=== PATIENT | male | born 1990 | race African-American/Black ===

== ENCOUNTER 2019-06-18 15:20 | Emergency (ER) | payer MEDICAID ==
[~2019-06-18] VITALS: Ht 172.7 cm; Wt 85.0 kg
[2019-06-18 15:40] VITALS: BP 134/82
[2019-06-18] MEDS ORDERED: AZITHROMYCIN 500 MG TABLET PO SCH (17:45)
[2019-06-18] MEDS ORDERED: CEFTRIAXONE SODIUM 250 MG/VIAL IM ONE (17:45)
[2019-06-18 17:50] LABS: CLARITY URINE TURBID (CLEAR); COLOR URINE DARK YELLOW (YELLOW); KETONES URINE TRACE (NEGATIVE); LEUKOCYTE ESTERASE URINE 3+ (NEGATIVE); NITRITE URINE NEGATIVE (NEGATIVE); OCCULT BLOOD URINE 2+ (NEGATIVE); PH URINE 6.5 (4.5-8.0); PROTEIN URINE 2+ (NEGATIVE); SPECIFIC GRAVITY URINE 1.023 (1.005-1.030)
[2019-06-18] MEDS ORDERED: CEFTRIAXONE SODIUM 250 MG/VIAL ONE (18:03)
[2019-06-18] MEDS ORDERED: AZITHROMYCIN 500 MG TABLET ONE (18:04)
== END 2019-06-18 19:11 | disposition home or self-care (01) ==
LOC: ER 15:20
DX: R36.9 Urethral discharge, unspecified (principal); F17.200 Nicotine dependence, unspecified, uncomplicated
CPT/HCPCS: 81003; 86592; 86703; 87086; 99283; J0696

== ENCOUNTER 2020-02-05 12:22 | Emergency (ER) | payer MEDICAID ==
[~2020-02-05] VITALS: Ht 172.7 cm; Wt 75.0 kg
[2020-02-05] MEDS ORDERED: PENICILLIN G BENZATHINE 2,400,000 UNITS/4ML SYR IM ONE (14:00)
[2020-02-05] MEDS ORDERED: CEFTRIAXONE SODIUM 250 MG/VIAL IM ONE (14:00)
[2020-02-05] MEDS ORDERED: LIDOCAINE HCL 1% 20ML VIAL (Pyxis) INJ INFIL ONE (14:00)
[2020-02-05] MEDS ORDERED: AZITHROMYCIN 500 MG TABLET PO ONE (14:00)
[2020-02-05 15:20] VITALS: BP 142/75
[2020-02-08 04:07] LABS: NEISSERIA GONORRHOEAE NAA Negative (Negative)
== END 2020-02-05 15:29 | disposition home or self-care (01) ==
LOC: ER 12:22
DX: N34.2 Other urethritis (principal)
CPT/HCPCS: 86592; 87491; 87591; 96372; 99284; J0561; J0696; J3490

== ENCOUNTER 2021-08-04 14:12 | Emergency (ER) | payer SELFPAY ==
[~2021-08-04] VITALS: Ht 182.9 cm; Wt 84.0 kg
[2021-08-04] MEDS ORDERED: ONDANSETRON 4MG ODT PO STA (14:22)
[2021-08-04 15:19] LABS: CHLORIDE 107 mEq/L (98-107)
[2021-08-04 15:24] LABS: BASOPHILS % 0.5 % (0.0-2.0); EOSINOPHILS % 0.7 % (0.0-5.0); ETHANOL BLOOD < 10 mg/dL; HEMATOCRIT. 40.3 % (42.0-52.0); HEMOGLOBIN. 13.6 g/dL (14.0-18.0); LYMPHOCYTES % 15.4 % (20.0-50.0); MEAN CORPUSCULAR HEMOGLOBIN 28.2 pg (28.0-32.0); MEAN CORPUSCULAR VOLUME 83.4 fL (80.0-94.0); MEAN PLATELET VOLUME 8.2 fl (7.4-10.4); MONOCYTES % 4.5 % (2.0-8.0); NEUTROPHILS % 78.9 % (40.0-76.0); PLATELET 185 x1000/uL (130-400); RED BLOOD CELL COUNT 4.83 mill/uL (4.7-6.1); RED CELL DISTRIBUTION WIDTH 13.6 % (11.6-14.6)
[2021-08-04 15:41] LABS: CLARITY URINE CLEAR (CLEAR); COLOR URINE YELLOW (YELLOW); KETONES URINE TRACE (NEGATIVE); LEUKOCYTE ESTERASE URINE TRACE (NEGATIVE); NITRITE URINE NEGATIVE (NEGATIVE); OCCULT BLOOD URINE NEGATIVE (NEGATIVE); PH URINE 6.5 (4.5-8.0); PROTEIN URINE NEGATIVE (NEGATIVE); SPECIFIC GRAVITY URINE 1.021 (1.005-1.030)
[2021-08-04 16:15] LABS: *AMPHETAMINES SCREEN URINE NEGATIVE (NEGATIVE); *BARBITURATES SCREEN URINE NEGATIVE (NEGATIVE); *BENZODIAZEPINES SCREEN URINE NEGATIVE (NEGATIVE); *COCAINE SCREEN URINE NEGATIVE (NEGATIVE); METHADONE URINE SCREEN NEGATIVE (NEGATIVE); OPIATES URINE SCREEN NEGATIVE (NEGATIVE)
[2021-08-04 16:16] LABS: CANNABINOID URINE SCREEN PRESUMTIVE POSITIVE (NEGATIVE); PHENCYCLIDINE URINE SCREEN NEGATIVE (NEGATIVE)
[2021-08-04] MEDS ORDERED: HYDR-459 MT (17:12)
[2021-08-04] MEDS ORDERED: HYDROXYZINE 25MG TABLET PO ONE (17:15)
[2021-08-04] MEDS ORDERED: ACETAMINOPHEN 325MG TABLET PO ONE (17:15)
[2021-08-04 21:30] VITALS: BP 122/57
== END 2021-08-04 22:09 | disposition home or self-care (01) ==
LOC: ER 14:12
DX: R53.1 Weakness (principal); F12.10 Cannabis abuse, uncomplicated; F17.210 Nicotine dependence, cigarettes, uncomplicated
CPT/HCPCS: 36415; 80053; 80305; 80307; 80320; 80329; 81003; 85025; 99291; Q0162; G0480

== ENCOUNTER 2021-10-27 14:39 | Emergency (ER) | payer SELFPAY ==
[~2021-10-27] VITALS: Ht 170.2 cm; Wt 73.0 kg
[~2021-10-27 14:39] MED LIST: HYDR-459 MT
[2021-10-27 14:41] VITALS: BP 135/70
[2021-10-27 15:44] LABS: BASOPHILS % 0.8 % (0.0-2.0); EOSINOPHILS % 0.4 % (0.0-5.0); HEMOGLOBIN. 16.2 g/dL (14.0-18.0); LYMPHOCYTES % 14.1 % (20.0-50.0); MEAN CORPUSCULAR HEMOGLOBIN 28.6 pg (28.0-32.0); MEAN CORPUSCULAR VOLUME 83.2 fL (80.0-94.0); MEAN PLATELET VOLUME 8.1 fl (7.4-10.4); MONOCYTES % 3.8 % (2.0-8.0); NEUTROPHILS % 80.9 % (40.0-76.0); PLATELET 209 x1000/uL (130-400); RED BLOOD CELL COUNT 5.65 mill/uL (4.7-6.1); RED CELL DISTRIBUTION WIDTH 13.7 % (11.6-14.6)
[2021-10-27 15:52] LABS: CHLORIDE 108 mEq/L (98-107)
[2021-10-27 15:58] LABS: ETHANOL BLOOD < 10 mg/dL
[2021-10-27] MEDS ORDERED: BUPR1FIL5 SL (16:12)
[2021-10-27 16:46] LABS: *BARBITURATES SCREEN URINE NEGATIVE (NEGATIVE); *BENZODIAZEPINES SCREEN URINE NEGATIVE (NEGATIVE); *COCAINE SCREEN URINE NEGATIVE (NEGATIVE); CANNABINOID URINE SCREEN PRESUMTIVE POSITIVE (NEGATIVE); METHADONE URINE SCREEN NEGATIVE (NEGATIVE); OPIATES URINE SCREEN PRESUMTIVE POSITIVE (NEGATIVE); PHENCYCLIDINE URINE SCREEN NEGATIVE (NEGATIVE)
[2021-10-27 16:47] LABS: *AMPHETAMINES SCREEN URINE NEGATIVE (NEGATIVE)
[2021-10-27 18:11] LABS: CLARITY URINE CLEAR (CLEAR); COLOR URINE YELLOW (YELLOW); PH URINE 8.5 (4.5-8.0); SPECIFIC GRAVITY URINE 1.021 (1.005-1.030)
[2021-10-27 18:12] LABS: PROTEIN URINE NEGATIVE (NEGATIVE)
[2021-10-27 18:13] LABS: KETONES URINE 1+ (NEGATIVE); NITRITE URINE NEGATIVE (NEGATIVE); OCCULT BLOOD URINE NEGATIVE (NEGATIVE); UROBILINOGEN URINE 0.2 E.U./dL (0.2-1.0)
[2021-10-27 18:14] LABS: LEUKOCYTE ESTERASE URINE NEGATIVE (NEGATIVE)
== END 2021-10-27 16:25 | disposition home or self-care (01) ==
LOC: ER 14:39
DX: F11.20 Opioid dependence, uncomplicated (principal); R45.851 Suicidal ideations
CPT/HCPCS: 36415; 80053; 80305; 80307; 80320; 80329; 81003; 85025; 99283; G0480